=== PATIENT | male | born 1965 | race Caucasian/White ===

== ENCOUNTER 2017-11-21 07:18 | Day surgery (SDC) | payer OTHER ==
[2017-11-21] MEDS ORDERED: MIDAZOLAM 1 MG/ML 2 ML INJ ×2 (09:04)
[2017-11-21] MEDS ORDERED: FENTAnyl 50 MCG/ML VIAL (09:05)
== END 2017-11-21 16:29 | disposition home or self-care (01) ==
LOC: GIL 07:18
DX: R19.5 Other fecal abnormalities (principal); K64.8 Other hemorrhoids; I10 Essential (primary) hypertension
CPT/HCPCS: 45378